=== PATIENT | female | born 1995 | race African-American/Black ===

== ENCOUNTER → 2018-10-25 | Outpatient (CLI) | payer OTHER ==
--- NOTE | 2018-10-29 13:52 | REP ---
Left great toe four views: There is a nondisplaced fracture of the distal tuft of the distal phalange. There is no dislocation. Mineralization and joint spaces are normal. Electronically Signed by Angel Luis Hung MD 10/25/2018 01:23 P
== END ==
LOC: M LRY 12:07
PROVIDERS: ATTEND Physician Assistant
DX: S92.425A Nondisplaced fracture of distal phalanx of left great toe, initial encounter for closed fracture (principal); X58.XXXA Exposure to other specified factors, initial encounter; Y92.89 Other specified places as the place of occurrence of the external cause
CPT/HCPCS: 73660; G0463